=== PATIENT | male | born 1950 | race Asian ===

== ENCOUNTER → 2016-09-05 | Outpatient (CLI) | payer MEDICARE, OTHER | END | disposition home or self-care (01) | LOC: RADMN 12:44 | PROVIDERS: ATTEND Legal Medicine | DX: G20 Parkinson's disease (principal) | CPT/HCPCS: 74230; 92611 ==

== ENCOUNTER → 2020-08-11 | Outpatient (CLI) | payer MEDICARE, OTHER | END | disposition home or self-care (01) | LOC: RADPV 09:05 | PROVIDERS: ATTEND Legal Medicine | DX: M43.16 Spondylolisthesis, lumbar region (principal); M16.0 Bilateral primary osteoarthritis of hip; M41.86 Other forms of scoliosis, lumbar region; M25.78 Osteophyte, vertebrae | CPT/HCPCS: 72100; 73503 ==